=== PATIENT | male | born 1975 | race Caucasian/White ===

== ENCOUNTER 2018-01-30 13:14 | Emergency (ER) | payer OTHER ==
--- NOTE | 2018-01-30 13:17 | ER Report ---
History and Physical Time Seen By MD: 13:17 HPI/ROS CHIEF COMPLAINT: Headache HISTORY OF PRESENT ILLNESS: This is a 42-year-old male who presents to the emergency department for a headache. Patient states that over the last 3 months he's had intermittent headaches, along with right-sided chest pain. Patient states he seen his provider about 3 times they've done blood work, EKG with little to no results. Patient states that he was working today and developed some visual changes in his right eye shortly after that he developed a right-sided headache. Patient denies having a history of migraines, no real history of headaches other last 3 months. No change in his stress level at work or home. The headache is resolving, no visual changes at this time. Patient states that he also developed some right-sided chest pain, he feels that this is more anxiety because of the ischial changes in the headache. Denies fevers or chills. No nausea or vomiting. No rashes. REVIEW OF SYSTEMS: Constitutional: No fever, no chills. Eyes: No discharge. ENT: No sore throat. Cardiovascular: As above. Respiratory: No cough, no shortness of breath. Gastrointestinal: No abdominal pain, no vomiting. Genitourinary: No hematuria. Musculoskeletal: No back pain. Skin: No rashes. Neurological: As above. Allergies: Coded Allergies: No Known Drug Allergies (Unverified , 01/30/18) Home Meds Reported Medications Amlodipine Besylate (AMLODIPINE BESYLATE) 5 Mg Tablet, 1 TAB PO QDAY, TAB 01/30/18 Losartan/Hydrochlorothiazide (LOSARTAN-HCTZ 100-25 MG TAB) 1 Each Tablet, 1 EACH PO QDAY 01/30/18 Rosuvastatin Calcium (CRESTOR) 10 Mg Tab, 10 MG PO QDAY, #5 TAB 01/30/18 Buspirone Hcl (BUSPIRONE HCL) 7.5 Mg Tablet, 7.5 MG PO BID, #10 TAB 01/30/18 Past Medical/Surgical History The patient has a past medical and surgical history of hypertension, hypocholesterolemia, tonsillectomy. Reviewed Nurses Notes: Yes Constitutional Vital Sign - Last 24 Hours 01/30/18 01/30/18 01/30/18 01/30/18 13:17 13:21 13:26 13:30 Temp 97.0 Pulse 93 89 Resp 12 B/P (MAP) 149/117 149/117 (128) 136/96 (109) 133/95 (108) Pulse Ox 91 92 O2 Delivery Room Air 01/30/18 01/30/18 01/30/18 01/30/18 13:45 14:00 14:30 14:45 Pulse 84 80 78 78 B/P (MAP) 122/84 (97) 124/86 (99) Pulse Ox 95 90 93 95 01/30/18 15:00 B/P (MAP) 120/82 (95) Pulse Ox 91 Physical Exam General Appearance: The patient is alert, has no immediate need for airway protection and no signs of toxicity. Eyes: Pupils equal and round no pallor or injection. EOMs intact, no nystagmus. ENT, Mouth: Mucous membranes are moist. Respiratory: There are no retractions, lungs are clear to auscultation. Cardiovascular: Regular rate and rhythm. Gastrointestinal: Abdomen is soft and non tender, no masses, bowel sounds normal. Neurological: Alert and oriented 4. Moving all extremities. Following all commands. No focal neuro deficits. Skin: Warm and dry, no rashes. Musculoskeletal: Neck is supple non tender. Extremities are nontender, nonswollen and have full range of motion. DIFFERENTIAL DIAGNOSIS: After history and physical exam differential diagnosis was considered for headache including but not limited to subarachnoid hemorrha ge, migraine headache, tension headache and infectious causes such as meningitis, pharyngitis and sinusitis. Medical Decision Making Data Points Result Diagram: 01/30/18 1324 01/30/18 1324 Laboratory Hematology Test 01/30/18 13:24 Red Blood Count 5.75 M/uL (4.00-5.60) Mean Corpuscular Volume 90.1 fL (80.0-96.0) Mean Corpuscular Hemoglobin 31.2 pg (26.0-33.0) Mean Corpuscular Hemoglobin Concent 34.6 g/dL (32.0-36.0) Red Cell Distribution Width 13.7 % (11.5-14.5) Mean Platelet Volume 8.6 fL (7.2-11.1) Neutrophils (%) (Auto) 67.5 % (39.4-72.5) Lymphocytes (%) (Auto) 23.0 % (17.6-49.6) Monocytes (%) (Auto) 6.4 % (4.1-12.4) Eosinophils (%) (Auto) 2.2 % (0.4-6.7) Basophils (%) (Auto) 0.9 % (0.3-1.4) Nucleated RBC Relative Count (auto) 0.1 /100WBC Neutrophils # (Auto) 6.7 K/uL (2.0-7.4) Lymphocytes # (Auto) 2.3 K/uL (1.3-3.6) Monocytes # (Auto) 0.6 K/uL (0.3-1.0) Eosinophils # (Auto) 0.2 K/uL (0.0-0.5) Basophils # (Auto) 0.1 K/uL (0.0-0.1) Nucleated RBC Absolute Count (auto) 0.01 K/uL Peripheral Blood Smear No Y/N Erythrocyte Sedimentation Rate 10 mm/HOUR (0-15) Sodium Level 139 mmol/L (137-145) Potassium Level 3.7 mmol/L (3.5-5.0) Chloride Level 99 mmol/L (98-107) Carbon Dioxide Level 27 mmol/L (22-30) Blood Urea Nitrogen 15 mg/dl (9-21) Creatinine 0.80 mg/dl (0.66-1.25) Glomerular Filtration Rate Calc > 60.0 Random Glucose 107 mg/dl (75-110) Calcium Level 9.6 mg/dl (8.4-10.2) Total Bilirubin 0.6 mg/dl (0.2-1.3) Aspartate Amino Transf (AST/SGOT) 31 U/L (0-35) Alanine Aminotransferase (ALT/SGPT) 45 U/L (0-56) Alkaline Phosphatase 61 U/L (0-126) Troponin I < 0.012 ng/ml Total Protein 8.1 g/dl (6.3-8.2) Albumin 4.7 g/dl (3.5-5.0) Chemistry Test 01/30/18 13:24 White Blood Count 9.9 k/uL (4.5-11.0) Red Blood Count 5.75 M/uL (4.00-5.60) Hemoglobin 17.9 g/dL (14.0-18.0) Hematocrit 51.8 % (42.0-52.0) Mean Corpuscular Volume 90.1 fL (80.0-96.0) Mean Corpuscular Hemoglobin 31.2 pg (26.0-33.0) Mean Corpuscular Hemoglobin Concent 34.6 g/dL (32.0-36.0) Red Cell Distribution Width 13.7 % (11.5-14.5) Platelet Count 278 K/uL (150-450) Mean Platelet Volume 8.6 fL (7.2-11.1) Neutrophils (%) (Auto) 67.5 % (39.4-72.5) Lymphocytes (%) (Auto) 23.0 % (17.6-49.6) Monocytes (%) (Auto) 6.4 % (4.1-12.4) Eosinophils (%) (Auto) 2.2 % (0.4-6.7) Basophils (%) (Auto) 0.9 % (0.3-1.4) Nucleated RBC Relative Count (auto) 0.1 /100WBC Neutrophils # (Auto) 6.7 K/uL (2.0-7.4) Lymphocytes # (Auto) 2.3 K/uL (1.3-3.6) Monocytes # (Auto) 0.6 K/uL (0.3-1.0) Eosinophils # (Auto) 0.2 K/uL (0.0-0.5) Basophils # (Auto) 0.1 K/uL (0.0-0.1) Nucleated RBC Absolute Count (auto) 0.01 K/uL Peripheral Blood Smear No Y/N Erythrocyte Sedimentation Rate 10 mm/HOUR (0-15) Glomerular Filtration Rate Calc > 60.0 Calcium Level 9.6 mg/dl (8.4-10.2) Total Bilirubin 0.6 mg/dl (0.2-1.3) Aspartate Amino Transf (AST/SGOT) 31 U/L (0-35) Alanine Aminotransferase (ALT/SGPT) 45 U/L (0-56) Alkaline Phosphatase 61 U/L (0-126) Troponin I < 0.012 ng/ml Total Protein 8.1 g/dl (6.3-8.2) Albumin 4.7 g/dl (3.5-5.0) EKG/Imaging EKG Interpretation 12 lead EKG: Time of EKG 1404. Rhythm: Normal sinus rhythm, ventricular rate 81 bpm. [place]: normal QRS: normal ST segments: No ST depression or elevation identified. ED Course/Re-evaluation Clinical Indication for ER IV: Hydration, IV Access ED Course The patient was admitted to room. A history of physical were obtained. Differential diagnoses were considered. An IV was started. A CBC, CMP and troponin were obtained. Lab studies unremarkable. Negative troponin. A 1 L normal saline bolus was given. EKG showing normal sinus rhythm, no concerning findings. Negative two-view chest x-ray. A head CT was negative for any acute intracranial process. After reviewing the results with the patient, I did tell him that I feel that this is a migraine type of headache. I recommended for all, Benadryl and Phenergan to see if this would help with the headache. Patient agreed. Patient was given these medications with significant relief of headache. Patient states he is ready to go home. I also told patient that this could be an ocular type migraine and to follow up with his primary care provider when he returns to [place], also if these continue then I did recommend following up with a headache specialist. Patient expressed understanding at this time and was discharged home. 01/30/2018 3:22:31 pm I did review the radiology results with the patient as well as the laboratory studies. We talked at length about the headaches, visual changes on the left eye I did tell him that this could be an ocular migraine. Patient is now indicating that he does have increased stress and has been working a lot recently. Decision to Disposition Date: Jan 30, 2018 Decision to Disposition Time: 16:03 Depart Departure Latest Vital Signs Vital Signs Date Time Temp Pulse Resp B/P (MAP) Pulse Ox O2 Delivery O2 Flow Rate FiO2 01/30/18 15:00 120/82 (95) 91 01/30/18 14:45 78 01/30/18 13:17 97.0 12 Room Air Impression: Primary Impression: Migraine headache Condition: Improved Disposition: HOME OR SELF-CARE Patient Instructions: Migraine Headache (ED), Migraine Headache in Children (GEN) Additional Instructions: I believe you are having a migraine, with an aura or an ocular migraine. Be sure to drink plenty of fluids. If they develop again, try 800mg of Ibuprofen every 8 hours, 1000mg of Tylenol every 8 hours and can try caffeine and ultimately sleep. Follow up with your pcp when you return to [place]. Return to the ED for any other concerns or worsening symptoms. Problem Qualifiers Primary Impression: Migraine headache Migraine type: with aura Status migrainosus presence: without status migrainosus Intractability: not intractable Qualified Codes: G43.109 - Migraine with aura, not intractable, without status migrainosus JONH RAM [facility] NURSE-BC Jan 30, 2018 13:17
[2018-01-30] MEDS ORDERED: NS(*) 0.9% 1000 ML BAG 1,000 ML IV ONE (13:43)
[2018-01-30 14:05] LABS: PLATELET COUNT, AUTOMATED 278 K/uL (150-450)
[2018-01-30] MEDS ORDERED: LOSA-54 PO (14:18)
[2018-01-30] MEDS ORDERED: BUSP7.5T7 PO (14:18)
[2018-01-30] MEDS ORDERED: AMLO-111 PO (14:18)
[2018-01-30] MEDS ORDERED: ROS10 PO (14:18)
--- NOTE | 2018-01-30 14:18 | EKG ---
FACILITY: [facility] [place] PATIENT NAME: NIA CASTELLANOS : [id number] MR: [id number] V: [id number] EXAM DATE: ORDERING PHYSICIAN: JONH RAM TECHNOLOGIST: DOMINIK Urias Reason : NEURO Blood Pressure : / mmHG Vent. Rate : 081 BPM Atrial Rate : 081 BPM P-R Int : 156 ms QRS Dur : 086 ms QT Int : 382 ms P-R-T Axes : 056 065 058 degrees QTc Int : 443 ms Normal sinus rhythm Normal ECG No previous ECGs available Confirmed by Sumit Everett ([id number]) on 01/30/2018 9:41:29 PM Referred By: Confirmed By:Sumit Rojas
--- NOTE | 2018-01-30 14:42 | RADIOLOGY IMAGING REPORT ---
[place] [facility] [place] NAME: Alexandru Hernandez : 1975 MR: [id number] V: [id number] EXAM DATE: ORDERING PHYSICIAN: JONH RAM TECHNOLOGIST: Location: [facility] [place] Patient: Alexandru Hernandez : 1975 Visit/Account:[id number] Date of Sevice: 01/30/2018 Exam type: CHEST PA AND LAT History: Chest pain Comparison: July 16, 2015. Findings: The lungs are free of acute effusions, infiltrates or edema. There is no evidence of pneumothorax or pneumomediastinum. The trachea is in midline. The cardiac silhouette is normal. IMPRESSION: 1. No acute cardiopulmonary process seen Report Dictated By: Taty Chatterjee MD at 01/30/2018 2:37 PM Report E-Signed By: Taty Chatterjee MD at 01/30/2018 2:38 PM [id number]
--- NOTE | 2018-01-30 14:43 | RADIOLOGY IMAGING REPORT ---
FACILITY: [facility] PATIENT NAME: Alexandru Hernandez : 1975 MR: [id number] V: [id number] EXAM DATE: ORDERING PHYSICIAN: JONH RAM TECHNOLOGIST: Location: [facility] Patient: Alexandru Hernandez : 1975 Visit/Account:[id number] Date of Sevice: 01/30/[address] scan without contrast COMPARISONS: None ADDITIONAL PERTINENT HISTORY: Headache TECHNIQUE: Multiple axial images were obtained from the skull base to the vertex without IV contrast . One of the following dose optimization techniques was utilized in the performance of this exam: Aut omated exposure control; adjustment of the mA and/or kV according to the patient's size; or use of an iterative reconstruction technique. Specific details can be referenced in the facility's radiology CT exam operational policy. FINDINGS: Midline shift: Negative Ventricles: Negative Brain parenchyma: Negative Extra-axial spaces: Negative Intracranial vasculature: Negative Osseous structures: Negative Paranasal sinuses and mastoid air cells: Negative Surrounding soft tissues and orbits: Negative IMPRESSION: Normal head CT scan without contrast. Report Dictated By: Emmanuel Andrade MD at 01/30/2018 2:36 PM Report E-Signed By: Emmanuel Andrade MD at 01/30/2018 2:39 PM WSN:[email or web address]
[2018-01-30 15:00] VITALS: BP 120/82
[2018-01-30] MEDS ORDERED: KETOROLAC 15 MG/ML VIAL IVP ONE (15:00)
[2018-01-30] MEDS ORDERED: diphenhydrAMINE 50 MG/ML VIAL IVP ONE (15:20)
[2018-01-30] MEDS ORDERED: DEXAMETHASONE SOD PHOS 10MG/ML IVP ONE (15:20)
[2018-01-30] MEDS ORDERED: PROMETHAZINE 25 MG/ML 1 ML AMP IVP ONE (15:20)
== END 2018-01-30 16:17 | disposition home or self-care (01) ==
LOC: ER 13:29
DX: G43.109 Migraine with aura, not intractable, without status migrainosus (principal)
CPT/HCPCS: 70450; 71046; 84484; 85025; 85651; 93005; 96361; 96374; 96375; 99284; J1100; J1200; J1885; J2550; J7030; 82040; 82247; 82310; 82374; 82435; 82565; 82947; 84075; 84132; 84155; 84295; 84450; 84460; 84520